=== PATIENT | female | born 1975 | race Caucasian/White ===

== ENCOUNTER → 2020-04-15 | Outpatient (CLI) | payer BC, OTHER | LOC: KOH-I 12:26 | DX: M25.512 Pain in left shoulder (principal) | CPT/HCPCS: 73000; 73030; 73060 ==

== ENCOUNTER → 2021-08-19 | Outpatient (CLI) | payer OTHER | LOC: KOH-I 10:21 | DX: M54.9 Dorsalgia, unspecified (principal); M41.86 Other forms of scoliosis, lumbar region | CPT/HCPCS: 72100 ==